=== PATIENT | male | born 1945 | race Two or more races ===

== ENCOUNTER 2017-08-01 11:55 | Emergency (ER) | payer MEDICARE, OTHER | END 2017-08-01 12:58 | disposition left against medical advice (07) | LOC: ER 11:55 | DX: M54.6 Pain in thoracic spine (principal); E78.00 Pure hypercholesterolemia, unspecified; I10 Essential (primary) hypertension; Z86.73 Personal history of transient ischemic attack (TIA), and cerebral infarction without residual deficits; I25.10 Atherosclerotic heart disease of native coronary artery without angina pectoris; Z88.0 Allergy status to penicillin; Z88.7 Allergy status to serum and vaccine | CPT/HCPCS: 99281 ==